=== PATIENT | female | born 1985 | race Caucasian/White ===

== ENCOUNTER 2017-06-28 17:51 | Emergency (ER) | payer SELFPAY ==
[~2017-06-28] VITALS: Ht 170.2 cm; Wt 56.4 kg
[~2017-06-28 17:51] MED LIST: CEFU250T PO; FERR325T63 PO; HYDR-3240 PO; IBUP-1222 PO; OXYC-302 PO
[2017-06-28 18:38] LABS: HEMATOCRIT 42.9 % (34.6-47.8); HEMOGLOBIN 14.6 g/dL (11.7-16.4); WHITE BLOOD COUNT 15.4 x10^3/uL (3.4-10)
[2017-06-28 18:52] LABS: ASPARTATE AMINO TRANSFERASE 14 U/L (15-37); BLOOD UREA NITROGEN 11 mg/dL (7-18)
[2017-06-28] MEDS ORDERED: PHENAZOPYRIDINE 200 MG TABLET PO ONE (21:30)
[2017-06-28] MEDS ORDERED: CEFTRIAXONE 1,000 MG IM ONE (21:30)
[2017-06-28] MEDS ORDERED: HYDROcodone/APAP 5/325 TABLET PO ONE (21:30)
[2017-06-28] MEDS ORDERED: CEFTRIAXONE 1,000 MG ONE (21:39)
[2017-06-28] MEDS ORDERED: PHENAZOPYRIDINE 200 MG TABLET ONE (21:39)
[2017-06-28] MEDS ORDERED: HYDROcodone/APAP 5/325 TABLET ONE (21:39)
[2017-06-28 21:51] VITALS: BP 106/51
== END 2017-06-28 22:10 | disposition home or self-care (01) ==
LOC: ED 22:04
DX: N30.90 Cystitis, unspecified without hematuria (principal); M54.5 Low back pain
CPT/HCPCS: 36415; 80053; 81001; 83690; 84703; 85025; 87077; 87086; 96372; 99284; J0696; 87186